=== PATIENT | female | born 1975 | race Caucasian/White ===

== ENCOUNTER 2024-04-08 13:59 | Outpatient (CLI) | payer BC, SELFPAY ==
--- NOTE | ~2024-04-08 | MM_ITS ---
EXAMINATION: MM screening [facility] BI w denae HISTORY: Screening TECHNIQUE: Craniocaudal and mediolateral oblique 3-D tomosynthesis images were obtained and synthetic 2-D images were generated. CAD analysis was submitted and interpreted. COMPARISON: No prior mammogram is available for comparison at this institution. BREAST PARENCHYMAL COMPOSITION: Not Dense: Breast are almost entirely fatty. FINDINGS: There is no evidence of suspicious mass, calcification, or architectural distortion to sugg est malignancy in either breast. There has been no suspicious interval change. IMPRESSION: 1. No mammographic evidence of malignancy. 2. Recommend routine screening mammography in one year. BI-RADS Category 1: Negative Reviewed, dictated and finalized at location B.
== END 2024-04-08 14:00 | disposition home or self-care (01) ==
LOC: CHSIMG 14:04
PROVIDERS: PCP Family Medicine; Visit Provider Family Medicine
DX: Z12.31 Encounter for screening mammogram for malignant neoplasm of breast (principal)
CPT/HCPCS: 77063; 77067

== ENCOUNTER 2024-12-18 14:02 | Outpatient (CLI) | payer SELFPAY ==
--- NOTE | ~2024-12-18 | MR_ITS ---
EXAMINATION: MR lumbar spine wo con DATE: 12/18/2024 14:29 INDICATION: Left leg sciatica TECHNIQUE: Magnetic resonance imaging (MRI) of the lumbar spine was performed without intravenous con trast. Sequences included sagittal T2-weighted FSE, sagittal T2-weighted FS FSE, sagittal T1-weighted FSE, and axial T2-weighted FSE. COMPARISON: None FINDINGS: 4 mm retrolisthesis L5 on S1. 2 mm retrolisthesis L2 on L3. Vertebral body heights are normal. Severe disc height loss with adjacent fibrofatty degenerative endplate changes at L4-L5 and L5-S1. T1 hyper intense hemangioma at the right side of S1. Marrow signal is otherwise unremarkable throughout. Addit ional mild disc height loss at L3-L4. There are annular fissures at L4-5 and L5-S1. The conus medulla ris terminates at L1. There is normal signal in the caudal spinal cord. Paravertebral soft tissues ar e unremarkable. The following disc levels are specifically discussed: T12-L1 and L1-L2: The disc does not extend beyond the endplate margin. There is mild bilateral facet joint osteoarthritis. There is no neural foraminal stenosis. There is no central canal stenosis. L2-L3: The disc does not extend beyond the more posterior L2 endplate margin. There is mild bilateral facet joint osteoarthritis. There is no neural foraminal stenosis. There is no central canal stenosi s. L3-L4: Disc is mildly bulging. There is moderate right and moderate left facet joint osteoarthritis. There is mild bilateral neural foraminal stenosis. There is mild central canal stenosis. L4-L5: Disc is bulging with annular fissure and disc extrusion at the left lateral recess which exten ds 10 mm caudal to the level of the superior endplate of L5 which exerts mass effect upon the nacho ing left L5 nerve root. There is moderate left and mild to moderate right facet joint osteoarthritis. There is moderate left and mild to moderate right neural foraminal stenosis. There is mild central c anal stenosis. L5-S1: Disc is bulging with annular fissure and small central disc extrusion with disc material exten ding up to 3 mm caudal to the level of the superior endplate of S1. There is moderate bilateral facet joint osteoarthritis. There is moderate bilateral neural foraminal stenosis. There is mild central c anal stenosis. IMPRESSION: 1. Severe lower lumbar spondylosis most notable for a L4-L5 disc extrusion which narrows the left lat eral recess exerting mass effect upon the traversing left L5 nerve root. Correlate clinically for mus sam weakness of great toe extension and sensory change of the medial foot and great toe. Reviewed, dictated and finalized at location B. RENCE ASSISTANT IMPRESSION: 1. Severe lower lumbar spondylosis most notable for a L4-L5 disc extrusion whic h narrows the left lateral recess exerting mass effect upon the traversing left L5 nerve root. Correlate clinically for muscle weakness of great toe extension and sensory change of the medial foot and great toe.
== END 2024-12-18 14:03 | disposition home or self-care (01) ==
PROVIDERS: PCP Family Medicine; Visit Provider Physician Assistant
DX: M51.369 Other intervertebral disc degeneration, lumbar region without mention of lumbar back pain or lower extremity pain (principal); M43.06 Spondylolysis, lumbar region; M51.26 Other intervertebral disc displacement, lumbar region
CPT/HCPCS: 72148

== ENCOUNTER 2025-01-21 16:01 | Outpatient (RCR) | payer BC, SELFPAY ==
--- NOTE | 2025-01-21 17:15 | OPREHPOC ---
Outpatient Therapy Plan of Care This is a Multidisciplinary Plan of Care that may contain components documented by all disciplines (PT, OT, and ST.) PT Problem 1 PT Problem #1 Knowledge Deficit PT Goal 1 Goal / Goal Update 1. independent and compliant with HEP Target Visit 6 PT Problem 2 PT Problem #2 Pain PT Goal 1 Goal / Goal Update 1. no pain at rest or with standing/walking in the R knee 2. no radicular symptoms past the L buttock 3. no more than 3/10 pain in the lower back Target Visit 12 PT Problem 3 PT Problem #3 Impaired Range of Motion PT Goal 1 Goal / Goal Update 1. full active lumbar rom without pain Target Visit 12 PT Problem 4 PT Problem #4 Impaired Strength PT Goal 1 Goal / Goal Update 1. 5/5 L hip strength 2. 5/5 L knee strength 3. 5/5 L DF Target Visit 12 PT Problem 5 PT Problem #5 Impaired Functional Mobility PT Goal 1 Goal / Goal Update 1. LEFS to display 30% or less functional deficits 2. oswestry to display 20% or less functional deficits 3. patient to tolerate 30 minutes of standing exercise without rest 4. patient to ambulate 15 minutes without rest Target Visit 12
--- NOTE | 2025-01-21 17:15 | PTOPEVAL1 ---
Assessment and note entered by JT File, PT Evaluation Information Assessment Status Evaluation Diagnosis herniated disc ICD-10 Condition Codes (PT) Pain in low back M54.50,Radiculopathy, lumbar region M54.16,Pain in right knee M25.561 Other ICD-10 Condition Codes ( M51.26 PT) Onset 12/02/24 Subjective Information patient reports she began having pain in the lower back and down the L LE back in november. she reports she does not recall any injury. she reports she did have an xray and MRI of the lumbar spine. she reports she has 3 herniated discs in her lower back at L4-L5 and L5-S1. she reports she feels weakness in the lower back with activities. she reports she takes the trash down the driveway and then she has to sit for several minutes. she reports the L LE pain is worse after getting up from laying down to sleep. she reports she sets an alarm every 3 hours to get up and walk /move around. she reports she injured the R knee during PT for the lower back. she reports it is better, as she was on crutches initially. she reports she was having to keep the knee bent for a while. she reports she felt pain in the R knee after squeezing her knees together with a therapy ball for the back. she reports her R knee pain is worse with standing. she has not had any recent imaging of the R knee. Reported Pain Level Pain Score 2,2: Self Report Assessment PT Clinical Summary mrs. maxwell presents to skilled PT services for evaluation and treatment of lumbar radiculopathy and R knee. she presents with L lumbar radiculopathy from 2 herniated discs in the lower spine. she is also complicated from an injury to the medial R knee that occurred during previous treatment for the lower back injury. she would benefit from continued skilled PT for the R knee and lower back to improve her objective/ functional deficits and return to his prior level functional activity performance/quality of life. Plan of Care Interventions Electrical Stimulation,Gait Training,Hot Pack/Cold Pack,Manual Therapy,Neuro Re-education,Patient/ Caregiver Education,Therapeutic Activities, Therapeutic Exercise PT Services Indicated Yes Treatment Frequency and 3x weekly for 12 visits Duration These treatments will address the objective and functional deficits as defined above. The patient will be advanced safely and appropriately in order for the patient to progress towards his/her prior level of function. Additional exercises will be introduced and as well as a comprehensive home exercise program upon discharge, if needed, ?to ensure carryover of functional gains achieved in the clinic. This treatment plan has been reviewed and agreement upon by the patient.
== END 2025-04-21 23:59 | disposition home or self-care (01) ==
LOC: CHSPT 16:01
PROVIDERS: Visit Provider Family Medicine
DX: M51.26 Other intervertebral disc displacement, lumbar region (principal); M25.561 Pain in right knee
CPT/HCPCS: 97014; 97110; 97150; 97161; G0283

== ENCOUNTER 2025-06-20 14:00 | Outpatient (CLI) | payer BC, SELFPAY ==
--- OUTSIDE RECORDS SUMMARY | 2022-11-08 10:30 | XMS_ITS | Continuity of Care Document ---
Author Organization [facility] Address [address] [place] [address] Phone Care Team Providers Care Onion Topper Name Role Phone [place] Jayy BROWN Unavailable Unavailable Allergies, Adverse Reactions, Alerts Substance Reaction Status Criticality No Known Allergies Active No Inform ation Procedures Procedure Date UNLISTED E&M SERVICE O.C.T. - RETINA OFFICE/OUTPATIENT VISIT, [facility] Advance Directives Directive Yes / No Effective Date File Name No Information Encounters Encounter Description Practice Location Reason(s) For Visit Diagnoses Date Provider Providers Copied on Encounter UNLISTED E&M SERVICE [facility], [address], [place], [id number], tel:[phone] [facility] [place] Complete Exam (chief complaint) Angioid streaks of macula 3 [place] Jayy. [address], [id number] , [place]. tel:[phone] OFFICE/OUTPATIE NT VISIT, [facility], [address], [place], [id number], [place] tel:[phone] [facility] Retina Evaluation (chief complaint) Angioid streaks of macula 2 Ebony Marion. [address] [place], [address], [place]. tel:[phone] Family History Family Member Type Diagnosis Age At Onset Father Problem (finding) Cancer, unknown Mother Problem (finding) Diabetes mellitus Mother Problem (finding) Cancer, unknown Payers Payer name Insurance type Covered republican ID Authoriza tion(s) No Information Social History Type Description Quantity Date Captured Comments Alcohol Use Details Unknown Caffeine Use Details Unknown Tobacco Use Status No Information Smoking Status No Information Sex Female Chief Complaint And Reason For Visit From encounter dated '11/08/2022 15:30'. Complete Exam (chief complaint). Description: This 47 year old female presents for a routine exam of the right and left eye. Eye meds: Reason For Referral Reason For Referral No Information History Of Present Illness Encounter Date Complaint History Of Prese nt Illness Complete Exam This 47 year old female presents for a routine exam of the right and left eye. Eye meds: Retina Evaluation Patient referr ed by Dr. Díaz for retinal evaluation. Per Dr. Díaz's notes, patient has multiple focal choroidal lesions OU, including the macula OS, which have gotten larger from 08/2020 to 08/2021. Dr. Díaz is wondering if this is histoplasmosis vs. toxoplasmosis or myopic degeneration. Dr. Díaz would like patient to have OCT Macula with Dr. Beck's recommendation as well as a treatment plan/follow-up schedule. Vision not affected. Patient states that she has floaters, not bothersome. 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
--- NOTE | ~2025-06-20 | MM_ITS ---
EXAMINATION: MM screening [facility] BI w denae HISTORY: Screening mammogram TECHNIQUE: Craniocaudal and mediolateral oblique 3-D tomosynthesis images were obtained and synthetic 2-D images were generated. CAD analysis was submitted and interpreted. COMPARISON: No prior mammogram is available for comparison at this institution. BREAST PARENCHYMAL COMPOSITION: Not Dense: The breasts are almost entirely fatty. FINDINGS: RIGHT BREAST: There is no evidence of suspicious mass, calcification, or architectural distortion to suggest malignancy. There has been no significant interval change. LEFT BREAST: No suspicious calcifications or architectural distortion. There is a 7 mm mass in the central left breast, middle to posterior depth IMPRESSION: 1. There is a 7 mm mass in the central left breast, middle to posterior depth. The study is incomplete. A diagnostic left breast mammogram and a diagnostic left breast ultrasound is recommended. 2. No mammographic evidence for malignancy in the right breast. BI-RADS Category 0: Incomplete: Needs additional imaging evaluation. Reviewed, dictated and finalized at Location A. Reviewed, dictated and finalized at location Q. IMPRESSION: 1. There is a 7 mm mass in the central left breast, middle to posterior depth. The study is incomplete. A diagnostic left breast mammogram and a diagnostic le ft breast ultrasound is recommended. 2. No mammographic evidence for malignancy in the right breast. BI-RADS Category 0: Incomplete: Needs additional imaging evaluation.
--- OUTSIDE RECORDS SUMMARY | 2025-06-20 14:03 | XMS_ITS | Clinical Summary ---
Author Organization [facility] Address [address] [place] [address] Care Team Providers Care Line Mover Name Role Phone Unavailable Primary Care Provider Unavailabl e Source Comments PLEASE NOTE, if this patient is a minor, it may be UNLAWFUL to discuss sensitive information that is contained in these records (such as FAMILY PLANNING, MENTAL HEALTH or SUBSTANCE ABUSE) with the minor patient's parent or other person without the patient's specific authorization.[facility] Allergies No known active allergies Medications NORETHINDRONE (LYZA ORAL) Take by mouth. Active omeprazole (PRILOSEC) [address] capsule Take 20 mg by mouth every morning before breakfast. Do not crush or chew. Active Social History Tobacco Use Types Packs/Day Years Used Date Smoking Tobacco: Never Alcohol Use Standard Drinks/Week Comments Not Asked 0 (1 standard drink = 0.6 oz pur e alcohol) Comments Unknown Sex and Gender Information Value Date Recorded Sex Assigned at Not on file Legal Sex Female 3:35 AM PST Gender Identity Not on file Sexual Orientation Not on file Last Filed Vital Signs Vital Sign Reading Time Taken Comments Blood Pressure 127/76 06/18/2014 5:35 PM PDT Pulse 88 06/17/2014 2:12 PM PDT Temperature 36.4 C (97.6 F) 06/17/2014 2:12 PM PDT Respiratory Rate - - Oxygen Saturation - - Inhaled Oxygen Concentration - - Weight 137 kg (302 lb) 06/17/2014 2:12 PM PDT Height 157.5 cm (5' 2) 06/17/2014 2:12 PM PDT Body Mass Index 55.24 06/17/2014 2:12 PM PDT Plan of Treatment Not on file Insurance [facility] MEDICAID
== END 2025-06-20 14:01 | disposition home or self-care (01) ==
LOC: CHSIMG 14:01
PROVIDERS: PCP Family Medicine; Visit Provider Family Medicine
DX: Z12.31 Encounter for screening mammogram for malignant neoplasm of breast (principal); R92.8 Other abnormal and inconclusive findings on diagnostic imaging of breast
CPT/HCPCS: 77063; 77067

== ENCOUNTER 2025-07-08 09:06 | Outpatient (CLI) | payer BC, SELFPAY ==
--- OUTSIDE RECORDS SUMMARY | 2025-06-14 16:30 | XMS_ITS ---
Author Organization [facility] Address [address] [place] [address] Care Team Providers Care Talent Development Consultant Name Role Phone Fredis Johnson Unavailable [phone] Migration, Provider Unavailable Unavailable Allergies Allergen (clinical drug ingredient) Drug/Non Drug Allergy documented on EMR Reaction Allergy Type Onset Date Status metronidazole MetroCream hives Drug Allergy Ac tive REASON FOR VISIT [facility] Encounter Medications Medication SIG (Take, Route, Frequency, Duration) Notes Start Date End Date Status Mirvaso *Please review a nd pick correct strength-formulatio n from Medispan options. If intended option is not shown, discontinue and re-order from Quick Search* Active Multivitamin *Please review a nd pick correct strength-formulatio n from Medispan options. If intended option is not shown, discontinue and re-order from Quick Search* Active Ivonne *Please review a nd pick correct strength-formulatio n from Oakmonkeyspan options. If intended option is not shown, discontinue and re-order from Quick Search* Active Omeprazole *Please review a nd pick correct strength-formulatio n from Medispan options. If intended option is not shown, discontinue and re-order from Quick Search* Active Sulfacetamide Sodium (Acne) 10 % 1 ania applied topically QHS; Duration: 30 day(s) 08/16/2016 Active Glutamine *Please review a nd pick correct strength-formulatio n from Medispan options. If intended option is not shown, discontinue and re-order from Quick Search* Active Encounters Encounter Location Date Provider Diagnosis [facility] [address] [place] [address] 06/14/2025 Provider Migration Acne vulgaris L70.0 Assessments Encounter Date Diagnosis (ICD Code) Assessment Notes Treatment Notes Treatment Clinical Notes Section Notes 06/14/2025 Acne vulgaris (ICD-10 - L70.0) See above. Plan Of Treatment Medication Medication Name Sig Start Date Stop Date Notes Sulfacetamide Sodium (Acne) 10 % 1 ania applied topically QHS; Duration: 30 day(s) 08/16/2016 Progress Notes * Carlos Alberto LIZMalaB:1975 (49 yo F)Acc No.[id number]:06/14/2025 Patient: Sadie PERKINS Provider: :1975 A ge:49 Y S ex:Female Date:06/14/2025 Address:[address] [place], [place] [id number] Subjective: * Chief Complaints: * 1 . Multum To Medispan Conversion Encounter. * Medical History: * Medications: T aking Omeprazole , Notes to Pharmacist: *Please review and pick correct strength-formulation from Medispan options. If intended option is not shown, discontinue and re-order from Quick Search*, Taking Ivonne , Notes to Pharmacist: *Please review and pick correct strength-formulation from Medispan options. If intended option is not shown, discontinue and re-order from Quick Search*, Taking Multivitamin , Notes to Pharmacist: *Please review and pick correct strength-formulation from Medispan options. If intended option is not shown, discontinue and re-order from Quick Search*, Taking Glutamine , Notes to Pharmacist: *Please review and pick correct strength-formulation from Medispan options. If intended option is not shown, discontinue and re-order from Quick Search*, Taking Mirvaso , Notes to Pharmacist: *Please review and pick correct strength- formulation from Medispan options. If intended option is not shown, discontinue and re-order from Quick Search* * Allergies: M etroCream: hives. Objective: * Vitals: Assessment: * Assessment: 1. A cne vulgaris - L70.0 N otes :See above. Plan: * Treatment: * * Electronic signature of Prov ider Migration on 07/08/2025 at 08:17 AM PDT Sign off status: Pending * Provider: Date: 0 06/14/2025 Generated for Magaly rick/Donna/Jerryitting on: 0 07/08/2025 08:17 AM PDT
--- NOTE | ~2025-07-08 | MMUS_ITS ---
EXAMINATION: MM diagnostic shantal LT w denae, US breast LT limited HISTORY: Inconclusive mammogram TECHNIQUE: Additional images of the left breast]] were performed using full field digital mammography. 3-D tomosynthesis were also obtained and synthetic 2- D images were generated. CAD analysis was submitted and interpreted. High- resolution left breast ultrasound was performed.] ] COMPARISON: Mammograms from 06/20/2025 and 04/08/2024 BREAST PARENCHYMAL COMPOSITION: The breasts are almost entirely fatty. FINDINGS: MAMMOGRAPHIC FINDINGS: Redemonstration of a 7 mm mass in the central left breast, middle to posterior depth. No convincing sonographic correlate. The finding is probably benign. ULTRASOUND: No cystic or solid mass identified in the area of concern in the left breast. IMPRESSION/RECOMMENDATION: 1. Probably benign finding in the left breast. A diagnostic left breast mammogram and a diagnostic left breast ultrasound is recommended. BI-RADS 3-Probably benign-Short interval follow-up suggested. Reviewed, dictated and finalized at location Q. IMPRESSION/RECOMMENDATION: 1. Probably benign finding in the left breast. A diagnostic left breast mammogr am and a diagnostic left breast ultrasound is recommended. BI-RADS 3-Probably benign-Short interval follow-up suggested. IMPRESSION/RECOMMENDATION: 1. Probably benign finding in the left breast. A diagnostic left breast mammogr am and a diagnostic left breast ultrasound is recommended. BI-RADS 3-Probably benign-Short interval follow-up suggested.
--- OUTSIDE RECORDS SUMMARY | 2025-07-08 10:18 | XMS_ITS | Patient Health Record ---
Author Organization [facility] Address [address] [place] [address] Care Team Providers Care Living Coach Name Role Phone Marie JUNE Fredis Unavailable [phone] Migration, Provider Unavailable Unavailable Allergies Allergen (clinical drug ingredient) Drug/Non Drug Allergy documented on EMR Reaction Allergy Type Onset Date Status metronidazole MetroCream hives Drug Allergy Ac tive Reason For Referral No Information Medications Medication SIG (Take, Route, Frequency, Duration) Notes Start Date End Date Status Mirvaso *Please review a nd pick correct strength-formulatio n from Medispan options. If intended option is not shown, discontinue and re-order from Quick Search* Active Glutamine *Please review a nd pick [...] topically QHS; Duration: 30 day(s) 08/16/2016 Active Social History Tobacco Use: Social History Observation Description Date Details (start date - stop date) Never Smoker NA - NA Smoking: Question Answer Notes Status : Never Smoker Alcohol Question Answer Notes Interpretation Negative Problems Problem Type SNOMED Code ICD Code Onset Dates Problem Status W/U Status Risk Notes Problem Acne vulgaris (15994115) Acne vulgaris (L70.0) Active confirmed See above. Problem Rosacea (793660426) Rosacea, unspecified (L71.9) Active confirmed Flaring. Acne most likely is also present since the eruptions worsen around her menses. Discussed need for life long treatment, pathophysiology, daily high SPF sunscreen use year round. Discussed consequences of non compliance with therapy. D/c metronidazole cream and stat sulfacetamide lotion QHS. Problem Neoplasm of uncertain behavior of skin (79567133) Neoplasm of uncertain behavior of skin (D48.5) Active confirmed Left axilla. Recurrent growth. Patient's description is consistent with a cyst. Small hyperpigmented macule noted but not palpable SQ growth. I recommended a Fast Track or SDA if this recurs. Problem Fibrous papule of nose (900152850) Fibrous papule of nose (D22.39) Active confirmed Most likely on the nose. The patient was reassured regarding the benign nature of this growth. Encounters Encounter Location Date Provider Diagnosis [facility] [address] [place] [address] 06/14/2025 Provider Migration Acne vulgaris L70.0 Assessments Encounter Date Diagnosis (ICD Code) Assessment Notes Treatment Notes Treatment Clinical Notes Section Notes 06/14/2025 Acne vulgaris (ICD-10 - L70.0) See above. Plan Of Treatment No Information Insurance Providers Payer Name Payer Address Payer Phone Subscriber Number Group Number Insured Name Patient Relationship to Insured Coverage Start Date Coverage End Date [facility] [address] [place] [address] [id number] Sadie Gutierrez Self - patient is the insured 6 Medical (General) History Medical History History ICD Code No hx skin cancer
--- OUTSIDE RECORDS SUMMARY | 2025-07-08 10:18 | XMS_ITS | Clinical Summary ---
Author Organization [facility] Address [address] [place] [address] Care Team Providers Care Senior Publications Specialist Name Role Phone Unavailable Primary Care Provider [...] Plan of Treatment Not on file Insurance [facility] MEDICAID
== END 2025-07-08 09:07 | disposition home or self-care (01) ==
LOC: CHSIMG 09:09
PROVIDERS: PCP Family Medicine; Visit Provider Family Medicine
DX: N63.20 Unspecified lump in the left breast, unspecified quadrant (principal)
CPT/HCPCS: 76642; 77061; 77065; G0279